=== PATIENT | female | born 1995 | race Caucasian/White ===

== ENCOUNTER 2016-12-24 19:13 | Emergency (ER) | payer MEDICAID ==
[~2016-12-24] VITALS: Ht 167.6 cm; Wt 95.3 kg
[~2016-12-24 19:13] MED LIST: KEFLEX 500MG.500 MG PO
[2016-12-24] MEDS ORDERED: CLINDAMYCIN HC300 MG PO (19:48)
--- NOTE | 2016-12-24 19:49 | Urgent Treatment Center Report ---
History of Present Issue Date/Time Seen by Provider 12/24/161921 Visit Reason Pt arrived:Walked Presenting Problem:PT HAS A SMALL, RED, HARDENED AREA ON HER RIGHT HIP AND C/O PAIN Location if Accident: Onset of symptoms date/time:/ or onset unknown for:MEDICAL HX UNKNOWN Have you (or family members/close friends) recently traveled outside the [place]? N If Yes, where/when: Have you had exposure to infectious disease within the past month? TB? Other? Specify: Patient states that she has a history of getting abcesses states that she noticed a small red area on her right hip area that is tender to touch and looks like when she had before ALLERGIES Coded Allergies: amoxicillin (Mild, 12/24/16) Home Medications Reported Medications No Known Home Medications History Medical History General Angina: No NV: No Hypertension? No Hyperlipidemia? No CHF? No COPD? No Asthma? Yes CVA? No Seizures? No Diabetes? No GB Disease: No MRSA? No TB? No Cancer? No Immunization HX DT/Tetanus 1-4 YRS Surgical Hx Previous Surgery?N [employer] Hx LMP 1 Week Ago Social History Smoking Hx Smoker: Never Smoker Tobacco: No Alcohol Alcohol: No Review of Systems All Other Systems Reviewed and Negative Physical Exam Vital Signs Vital Signs Date Time Temp Pulse Resp B/P Pulse O2 O2 Flow FiO2 Ox Delivery Rate 12/24 1936 97.8 101 18 145/75 97 12/24 1915 97.8 101 18 145/75 97 General Appearance normal appearance, no apparent distress Respiratory Status Yes: trachea midline, chest symmetrical, non tender chest. No: respiratory distress. Lung Sounds bilateral: normal breath sounds, lungs clear. Cardiovascular normal exam Neurologic alert, normal exam Skin small red raised area on right hip that is red around. no streaking noted no cellultits Medical Decision Making LABS/Meds/Orders Pt receiving controlled substance in ED? No Departure Departure Time of Disposition 1942 Disposition DC Home or Self Care(routine) Clinical Impression Primary Impression: Abscess Condition STABLE Referrals CEDRIC LINN APRN (Family) Patient Instructions DI for Skin Abscess Additional Instructions Follow up family doctor Take medication as prescribed Return to [facility] if needed Discharge Counseling Counseled pt/family regarding diagnosis, medications/RX, home care Prescriptions Current Visit Scripts Clindamycin Hcl (Clindamycin 300MG) 300 MG PO QID #40 CAP at 1948
--- NOTE | 2016-12-24 19:49 | Urgent Treatment Center Report ---
History of Present Issue Date/Time Seen by Provider 12/24/161921 Visit Reason Pt arrived:Walked Presenting Problem:PT HAS A SMALL, RED, HARDENED AREA ON HER RIGHT HIP AND C/O PAIN Location if Accident: Onset of symptoms date/time:/ or onset unknown for:MEDICAL HX UNKNOWN Have you (or family members/close friends) recently traveled outside the [place]? N If Yes, where/when: Have you had exposure to infectious disease within the past month? TB? Other? Specify: Patient states that she has a history of getting abcesses states that she noticed a small red area on her right hip area that is tender to touch and looks like when she had before ALLERGIES Coded Allergies: amoxicillin (Mild, 12/24/16) Home Medications Reported Medications No Known Home Medications History Medical History General Angina: No GA: No Hypertension? No Hyperlipidemia? No CHF? No COPD? No Asthma? Yes CVA? No Seizures? No Diabetes? No GB Disease: No MRSA? No TB? No Cancer? No Immunization HX DT/Tetanus 1-4 YRS Surgical Hx Previous Surgery?N [employer] Hx LMP 1 Week Ago Social History Smoking Hx Smoker: Never Smoker Tobacco: No Alcohol Alcohol: No Review of Systems All Other Systems Reviewed and Negative Physical Exam Vital Signs Vital Signs Date Time Temp Pulse Resp B/P Pulse O2 O2 Flow FiO2 Ox Delivery Rate 12/24 1936 97.8 101 18 145/75 97 12/24 1915 97.8 101 18 145/75 97 General Appearance normal appearance, no apparent distress Respiratory Status Yes: trachea midline, chest symmetrical, non tender chest. No: respiratory distress. Lung Sounds bilateral: normal breath sounds, lungs clear. Cardiovascular normal exam Neurologic alert, normal exam Skin small red raised area on right hip that is red around. no streaking noted no cellultits Medical Decision Making LABS/Meds/Orders Pt receiving controlled substance in ED? No Departure Departure Time of Disposition 1942 Disposition DC Home or Self Care(routine) Clinical Impression Primary Impression: Abscess Condition STABLE Referrals CEDRIC LINN APRN (Family) Patient Instructions DI for Skin Abscess Additional Instructions Follow up family doctor Take medication as prescribed Return to [facility] if needed Discharge Counseling Counseled pt/family regarding diagnosis, medications/RX, home care Prescriptions Current Visit Scripts Clindamycin Hcl (Clindamycin 300MG) 300 MG PO QID #40 CAP at 1948
[2016-12-24 19:58] VITALS: BP 145/75
[2017-02-08] MEDS ORDERED: BACTROBAN2% TP (03:40)
== END 2016-12-24 20:02 | disposition home or self-care (01) ==
LOC: ER 19:13 → UTC 19:13
DX: L02.415 Cutaneous abscess of right lower limb (principal)